=== PATIENT | female | born 1935 | race Hispanic/Latino ===

== ENCOUNTER 2018-09-05 00:08 | Emergency (ER) | payer OTHER ==
--- OUTSIDE RECORDS SUMMARY | 2018-09-05 00:11 | XMS REPORT ---
:1935 Author Organization eClinicalWorks Care Team Providers Name Role Phone Marco [facility] Provider Role Unavailable Allergies, Adverse Reactions, Alerts Substance Reaction Event Type N.K.D.A. Info Not Available Non Drug Allergy Problems Problem Type Condition Code Onset Dates Condition Status Problem Gout involving toe of right foot, M10.9 Active unspecified cause, unspecified chronicity Problem Peripheral polyneuropathy G62.9 Active Problem Uncontrolled type 2 diabetes E11.65 Active mellitus with hyperglycemia Problem HTN (hypertension), benign I10 Active Problem Anemia, iron deficiency, inadequate D50.8 Active dietary intake Problem History of colon cancer Z85.038 Active Problem Hypothyroidism, unspecified type E03.9 Active Problem Seasonal allergies J30.2 Active Problem Mixed hyperlipidemia E78.2 Active Assessment Gout involving toe of right foot, M10.9 Active unspecified cause, unspecified chronicity Assessment History of colon cancer Z85.038 Active Assessment Anemia, iron deficiency, inadequate D50.8 Active dietary intake Assessment Hypothyroidism, unspecified type E03.9 Active Assessment HTN (hypertension), benign I10 Active Assessment Seasonal allergies J30.2 Active Assessment Mixed hyperlipidemia E78.2 Active Assessment Peripheral polyneuropathy G62.9 Active Assessment Uncontrolled type 2 diabetes E11.65 Active mellitus with hyperglycemia Medications Medication Code Code Instructions Start End Status Dosage System Date Date Levothyroxine [facility] 57985260040 75 MCG Orally Jul 26, Active 1 tablet Sodium Once a day 2017 on an empty stomach in the morning Riya Aspirin EC ND 72942623252 81 MG Orally Active 1 tablet Low Dose Once a day Ferrous Sulfate ND 66244642810 325 (65 Fe) MG Aug 11, Active 1 tablet Orally Once a 2018 day Irbesartan-[place] ND 23988951587 300-12.5 MG Active 1 tablet chlorothiazide Orally Once a day Allopurinol ND 51309144131 100 MG Orally Active 1 tablet Once a day Tradjenta ND 67174022654 5 MG Orally Aug 11, Active 1 tablet Once a day 2018 Gabapentin ND 22371609458 300 MG Orally Inactive 1 capsule Twice a day Amlodipine [facility] 44575675738 2.5 MG Orally Aug 11, Active 1 tablet Besylate Once a day 2017 Lyrica [facility] 00074265737 100 MG Orally Active 1 capsule Twice a day Metformin HCl [facility] 97453813909 500 MG Orally Active 1 tablet TID with a meal Levothyroxine [facility] 41424175440 75 MCG Orally Active 1 tablet Sodium Once a day on an empty stomach in the morning Results No Known Results Summary Purpose eClinicalWorks Submission
[2018-09-05] MEDS ORDERED: DEXAMETHASONE 10 MG/ML VIAL ONE (00:53)
[2018-09-05] MEDS ORDERED: KETOROLAC 30 MG/ML INJ ONE (00:53)
--- NOTE | 2018-09-05 01:21 | ER ---
Nurse's Notes [facility] Name: Lara Vernon Age: 82 yrs Sex: Female : 1935 Arrival Date: 09/05/2018 Time: 00:11 Bed 8 Private MD: Nelson Lara Diagnosis: Otalgia, right ear;Acute pharyngitis Presentation: 09/05 00:39 Presenting complaint: Patient states: Right ear, right sided facial pain, pain to lp1 throat; States having some congestion prior to symptoms. Transition of care: patient was not received from another setting of care. Onset of symptoms was September 05, 2018. Risk Assessment: Do you want to hurt yourself or someone else? Patient reports no desire to harm self or others. Initial Sepsis Screen: Does the patient meet any 2 criteria? No. Patient's initial sepsis screen is negative. Does the patient have a suspected source of infection? No. Patient's initial sepsis screen is negative. Care prior to arrival: None. 00:39 Method Of Arrival: Wheelchair lp1 00:39 Acuity: BRIANDA 4 lp1 Historical: - Allergies: 00:42 No Known Allergies; lp1 - Home Meds: 00:42 allopurinol 100 mg Oral tab 1 tab once daily [Active]; aspirin 81 mg Oral chew 1 tab lp1 once daily [Active]; gabapentin 600 mg Oral tab 2 cap twice a day [Active]; irbesartan-hydrochlorothiazide 300-12.5 mg Oral tab 1 tab once daily [Active]; levothyroxine 75 mcg tab 1 tab once daily [Active]; metformin 500 mg Oral tab 1 tab three times a day [Active]; tramadol 50 mg Oral tab 1 tab twice a day [Active]; Vitamin D High Potency 35,000 IU daily [Active]; - PMHx: 00:42 COLON CA; Diabetes - NIDDM; Gout; Hypertension; Hypothyroidism; neuropathy; lp1 - PSHx: 00:42 None; lp1 - Immunization history:: Adult Immunizations up to date. - Social history:: Smoking status: Patient/guardian denies using tobacco. - Ebola Screening: : No symptoms or risks identified at this time. - Family history:: not pertinent. - Hospitalizations: : No recent hospitalization is reported. Screenin:43 Abuse screen: Denies threats or abuse. Denies injuries from another. Nutritional lp1 screening: No deficits noted. Tuberculosis screening: No symptoms or risk factors identified. Fall Risk None identified. Assessment: 00:40 General: Appears in no apparent distress. uncomfortable, Behavior is cooperative, aa1 appropriate for age, crying. Pain: Complains of pain in right zygomatic area, right cheek, right mandible and right ear Pain currently is 10 out of 10 on a pain scale. Is continuous. Neuro: Level of Consciousness is awake, alert, obeys commands, Oriented to person, place, time, situation, Moves all extremities. Speech is normal, Facial symmetry appears normal. Cardiovascular: Denies chest pain, palpitations. Respiratory: Airway is patent Respiratory effort is even, unlabored, Respiratory pattern is regular, symmetrical. GI: No signs and/or symptoms were reported involving the gastrointestinal system. : No signs and/or symptoms were reported regarding the genitourinary system. EENT: Ear canal clear on right ear Reports pain in right ear. Derm: Skin is intact, is healthy with good turgor, Skin is pink, warm \T\ dry. Musculoskeletal: Circulation, motion, and sensation intact. Capillary refill < 3 seconds. 01:32 Reassessment: Patient appears in no apparent distress at this time. Patient is alert, aa1 oriented x 3, equal unlabored respirations, skin warm/dry/pink. Discussed d/c \T\ f/u instructions with pt \T\ family; denies questions or concerns at this time Patient states feeling better. Patient states symptoms have improved. Vital Signs: 00:40 BP 200 / 78; Pulse 86; Resp 18; Temp 98.1(O); Pulse Ox 99% on R/A; Weight 69.85 kg; lp1 Height 5 ft. 4 in. (162.56 cm); Pain 10/10; 01:12 BP 165 / 68; Pulse 60; Resp 20; Pulse Ox 95% on R/A; aa1 00:40 Body Mass Index 26.43 (69.85 kg, 162.56 cm) lp1 ED Course: 00:11 Patient arrived in ED. es 00:12 Nelson Lara DO is Private Physician. es 00:31 Allen Juarez MD is Attending Physician. rn 00:34 Marilou Juarez RN is Primary Nurse. aa1 00:40 Triage completed. lp1 00:41 Arm band placed on left wrist. lp1 00:43 Patient has correct armband on for positive identification. Pulse ox on. NIBP on. lp1 01:32 No provider procedures requiring assistance completed. Patient did not have IV access aa1 during this emergency room visit. Administered Medications: 00:49 Drug: TORadol 30 mg Route: IM; Site: right deltoid; aa1 01:30 Follow up: Response: No adverse reaction; Pain is decreased aa1 00:50 Drug: Decadron 10 mg Route: IM; Site: right gluteus; aa1 01:30 Follow up: Response: No adverse reaction; Pain is decreased aa1 01:29 Drug: Augmentin 875 mg Route: PO; aa1 01:30 Follow up: Response: Medication administered at discharge. aa1 01:30 Drug: Bixby 5 mg-325 mg 1 tabs Route: PO; aa1 01:31 Follow up: Response: Medication administered at discharge. aa1 Outcome: 01:21 Discharge ordered by MD. rn 01:32 Discharged to home via wheelchair, with family. aa1 01:32 Condition: good 01:32 Discharge instructions given to patient, family, Instructed on discharge instructions, follow up and referral plans. medication usage, Demonstrated understanding of instructions, follow-up care, medications, Prescriptions given X 2. 01:34 Patient left the ED. aa1 Signatures: Marilou Juarez RN RN aa1 Aylin Gilbert Roman, MD MD rn Eryn Landeros RN RN lp1
--- NOTE | 2018-09-05 01:22 | EDPHYS ---
Physician Documentation [facility] Name: Lara Vernon Age: 82 yrs Sex: Female : 1935 Arrival Date: 09/05/2018 Time: 00:11 Bed 8 Private MD: Nelson Lara ED Physician Allen Juarez HPI: 09/05 01:01 This 82 yrs old Female presents to ER via Wheelchair with complaints of Ear rn Pain, RT FACIAL PAIN. 01:01 The patient presents with pain. The complaints affect the right cheek and right ear. rn Onset: The symptoms/episode began/occurred yesterday. Modifying factors: The symptoms are alleviated by nothing, the symptoms are aggravated by nothing. Severity of symptoms: At their worst the symptoms were moderate in the emergency department the symptoms are unchanged. The patient has not experienced similar symptoms in the past. The patient has not recently seen a physician. Reports began with right ear pain, radiates to right face and also reports sore throat, no fever, no rash, mildly improved with with ear drops from family member. . Historical: - Allergies: 00:42 No Known Allergies; lp1 - Home Meds: 00:42 allopurinol 100 mg Oral tab 1 tab once daily [Active]; aspirin 81 mg Oral chew 1 tab lp1 once daily [Active]; gabapentin 600 mg Oral tab 2 cap twice a day [Active]; irbesartan-hydrochlorothiazide 300-12.5 mg Oral tab 1 tab once daily [Active]; levothyroxine 75 mcg tab 1 tab once daily [Active]; metformin 500 mg Oral tab 1 tab three times a day [Active]; tramadol 50 mg Oral tab 1 tab twice a day [Active]; Vitamin D High Potency 35,000 IU daily [Active]; - PMHx: 00:42 COLON CA; Diabetes - NIDDM; Gout; Hypertension; Hypothyroidism; neuropathy; lp1 - PSHx: 00:42 None; lp1 - Immunization history:: Adult Immunizations up to date. - Social history:: Smoking status: Patient/guardian denies using tobacco. - Ebola Screening: : No symptoms or risks identified at this time. - Family history:: not pertinent. - Hospitalizations: : No recent hospitalization is reported. ROS: 01:01 Constitutional: Negative for fever, chills, and weight loss, Eyes: Negative for injury, rn pain, redness, and discharge, no vision changes ENT: + right ear pain and sore throat Neck: Negative for injury, pain, and swelling, Cardiovascular: Negative for chest pain, palpitations, and edema, Respiratory: Negative for shortness of breath, cough, wheezing, and pleuritic chest pain, Abdomen/GI: Negative for abdominal pain, nausea, vomiting, diarrhea, and constipation, MS/Extremity: Negative for injury and deformity, Skin: Negative for injury, rash, and discoloration, Neuro: + headache, no focal weakness/numbness Exam: 01:01 Constitutional: This is a well developed, well nourished patient who is awake, alert, rn holding towel to right face and cotton ball in right ear. Head/Face: Normocephalic, atraumatic, no rash, no tenderness over temporal artery Eyes: Pupils equal round and reactive to light, extra-ocular motions intact. Lids and lashes normal. Conjunctiva and sclera are non-icteric and not injected. Cornea within normal limits. Periorbital areas with no swelling, redness, or edema. ENT: mild pharyngeal erythema, no stridor, MMM Cardiovascular: Regular rate and rhythm with a normal S1 and S2. No gallops, murmurs, or rubs. No JVD. No pulse deficits. Respiratory: Lungs have equal breath sounds bilaterally, clear to auscultation. No increased work of breathing, no retractions or nasal flaring. Skin: Warm, dry with normal turgor. Normal color with no rashes, no lesions, and no evidence of cellulitis. MS/ Extremity: Pulses equal, no cyanosis. Neurovascular intact. Full, normal range of motion. Equal circumference. Neuro: Awake and alert, GCS 15, oriented to person, place, time, and situation. Cranial nerves II-XII grossly intact. Motor strength 5/5 in all extremities. Sensory grossly intact. Cerebellar exam normal. Vital Signs: 00:40 BP 200 / 78; Pulse 86; Resp 18; Temp 98.1(O); Pulse Ox 99% on R/A; Weight 69.85 kg; lp1 Height 5 ft. 4 in. (162.56 cm); Pain 10/10; 01:12 BP 165 / 68; Pulse 60; Resp 20; Pulse Ox 95% on R/A; aa1 00:40 Body Mass Index 26.43 (69.85 kg, 162.56 cm) lp1 MDM: 00:32 Patient medically screened. rn 01:18 Differential diagnosis: otitis media, otitis externa, foreign body, acute otalgia. Data rn reviewed: vital signs, nurses notes, lab test result(s), and as a result, I will discharge patient. Counseling: I had a detailed discussion with the patient and/or guardian regarding: the historical points, exam findings, and any diagnostic results supporting the discharge/admit diagnosis, lab results, the need for outpatient follow up, to return to the emergency department if symptoms worsen or persist or if there are any questions or concerns that arise at home. Response to treatment: the patient's symptoms have markedly improved after treatment, and as a result, I will discharge patient. Special discussion: I discussed with the patient/guardian in detail that at this point there is no indication for admission to the hospital. It is understood, however, that if the symptoms persist or worsen the patient needs to return immediately for re-evaluation. ED course: Pain down from 06/02 to 10/31. 09/05 00:38 Order name: Strep; Complete Time: 01:10 rn 09/05 00:38 Order name: Flu; Complete Time: 01:10 rn 09/05 01:10 Order name: Throat Culture EDMS Administered Medications: 00:49 Drug: TORadol 30 mg Route: IM; Site: right deltoid; aa1 01:30 Follow up: Response: No adverse reaction; Pain is decreased aa1 00:50 Drug: Decadron 10 mg Route: IM; Site: right gluteus; aa1 01:30 Follow up: Response: No adverse reaction; Pain is decreased aa1 01:29 Drug: Augmentin 875 mg Route: PO; aa1 01:30 Follow up: Response: Medication administered at discharge. aa1 01:30 Drug: Winder 5 mg-325 mg 1 tabs Route: PO; aa1 01:31 Follow up: Response: Medication administered at discharge. aa1 Disposition: 09/05/18 01:21 Discharged to Home. Impression: Otalgia, right ear, Acute pharyngitis. - Condition is Stable. - Discharge Instructions: Earache, Adult, Pharyngitis. - Prescriptions for Augmentin 875- 125 mg Oral Tablet - take 1 tablet by ORAL route every 12 hours for 10 days; 20 tablet. Medrol (Jeramy) 4 mg Oral Tablets, Dose Pack - take 1 tablet by ORAL route as directed - follow package instructions; 1 packet. - Medication Reconciliation Form, Thank You Letter, Antibiotic Education, Prescription Opioid Use form. - Follow up: Private Physician; When: As needed; Reason: Recheck today's complaints, Re-evaluation by your physician. - Problem is new. - Symptoms have improved. Signatures: Dispatcher [employer] EDMS Marilou Juarez RN RN aa1 Allen Juarez MD MD rn LanderosEryn RN RN lp1 Corrections: (The following items were deleted from the chart) 01:34 01:21 09/05/2018 01:21 Discharged to Home. Impression: Otalgia, right ear; Acute aa1 pharyngitis. Condition is Stable. Forms are Medication Reconciliation Form, Thank You Letter, Antibiotic Education, Prescription Opioid Use. Follow up: Private Physician; When: As needed; Reason: Recheck today's complaints, Re-evaluation by your physician. Problem is new. Symptoms have improved. rn
[2018-09-05] MEDS ORDERED: HYDROCODONE/APAP 5/325 MG TAB ONE (01:31)
[2018-09-05] MEDS ORDERED: AMOX/K CLAV 875 MG TAB ONE (01:31)
[2018-09-05 01:41] VITALS: TEMP 98.1
[2018-09-05 01:42] VITALS: BP 165/68; O2SAT 95
== END 2018-09-05 01:34 | disposition home or self-care (01) ==
LOC: ER 00:08
DX: J02.9 Acute pharyngitis, unspecified (principal); I10 Essential (primary) hypertension; E11.9 Type 2 diabetes mellitus without complications; E03.9 Hypothyroidism, unspecified; Z79.82 Long term (current) use of aspirin; Z85.038 Personal history of other malignant neoplasm of large intestine
CPT/HCPCS: 87070; 87081; 87804 ×2; 96372; 99283; J1100

== ENCOUNTER 2019-12-30 08:20 | Emergency (ER) | payer OTHER ==
--- OUTSIDE RECORDS SUMMARY | 2019-12-30 08:56 | XMS REPORT ---
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 Problem Pain in left ankle and joints of M25.572 Active left foot Problem Gout involving toe of right foot, M10.9 Active unspecified cause, unspecified chronicity Problem Peripheral polyneuropathy G62.9 Ac tive Problem Anemia, iron deficiency, inadequate D50.8 Active dietary intake Problem Uncontrolled type 2 diabetes E11.65 Active mellitus with hyperglycemia Medications Medication Code Code Instructions Start End Status Dosage System Date Date Levothyroxine [facility] 95488169470 75 MCG Orally Active 1 tablet Sodium Once a day in the morning on an empty stomach Results No Known Results Summary Purpose eClinicalWorks Submission
--- OUTSIDE RECORDS SUMMARY | 2019-12-30 08:56 | XMS REPORT ---
:1935 Author Organization eClinicalWorks Care Team Providers Name Role Phone LaraNelson Provider Role Unavailable Allergies, Adverse Reactions, Alerts Substance Reaction Event Type N.K.D.A. Info Not Available Non Drug Allergy Problems Problem Type Condition Code Onset Dates Condition Statu s Problem Hypothyroidism, unspecified type E03.9 Active Problem Gout involving toe of right foot, M10.9 Active unspecified cause, unspecified chronicity Problem Peripheral polyneuropathy G62.9 Ac tive Problem Pain in left ankle and joints of M25.572 Active left foot Problem Left sciatic nerve pain M54.32 Acti ve Problem CKD (chronic kidney disease) stage N18.3 Active 3, GFR 30-59 ml/min Problem Uncontrolled type 2 diabetes E11.65 Active mellitus with hyperglycemia Problem HTN (hypertension), benign I10 A ctive Problem 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 Problem Anemia, iron deficiency, inadequate D50.8 Active dietary intake Problem History of colon cancer Z85.038 Acti ve Assessment Acute cystitis without hematuria N30.00 Active Problem Mixed hyperlipidemia E78.2 Active Assessment Dysuria R30.0 Active Problem Seasonal allergies J30.2 Active Medications Medication Code Code Instructions Start End Status Dosage System Date Date Allopurinol [facility] 57545344284 100 MG Orally Active 1 tablet Once a day Metformin HCl [facility] 24147177230 500 MG Orally Active 1 tablet TID with a meal Amlodipine ND 98534684901 5 MG Orally Active 1 tab let Besylate Once a day Donezepil HCl-10 NDC 0 Active not mg defined Ferrous Sulfate [facility] 12159809691 325 (65 Fe) MG Activ e 1 tablet Orally BID Lyrica ND 70224803053 150 MG Orally Active 1 caps ule Twice a day Irbesartan-Hydroc [facility] 95575204454 300-12.5 MG Active 1 tablet hlorothiazide Orally Once a day Riya Aspirin EC [facility] 91123241912 81 MG Orally Active 1 tablet Low Dose Once a day Tradjenta [facility] 78013129193 5 MG Orally Active 1 tabl et Once a day Nitrofurantoin [facility] 28015676604 100 MG Orally Sep 19Sep 24, Active 1 capsule Macrocrystal BID 2019 2019 with food or milk Levothyroxine [facility] 26519901921 75 MCG Orally Active 1 tablet Sodium Once a day in the morning on an empty stomach Results No Known Results Summary Purpose eClinicalWorks Submission
--- OUTSIDE RECORDS SUMMARY | 2019-12-30 08:56 | XMS REPORT ---
:1935 Author Organization eClinicalWorks Care Team Providers Name Role Phone Nelson Lara Provider Role Unavailable Allergies, Adverse Reactions, Alerts Substance Reaction Event Type N.K.D.A. 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 Assessment History of colon cancer Z85.038 Acti ve Assessment Gout involving toe of right foot, M10.9 Active unspecified cause, unspecified chronicity Problem Pain in left ankle and joints of M25.572 Active left foot Problem Gout involving toe of right foot, M10.9 Active unspecified cause, unspecified chronicity Problem Peripheral polyneuropathy G62.9 Ac tive Problem Anemia, iron deficiency, inadequate D50.8 Active dietary intake Problem Uncontrolled type 2 diabetes E11.65 Active mellitus with hyperglycemia Assessment Proteinuria, unspecified type R80.9 Active Assessment Hypothyroidism, unspecified type E03.9 Active Assessment Peripheral polyneuropathy G62.9 Ac tive Assessment CKD (chronic kidney disease) stage N18.3 Active 3, GFR 30-59 ml/min Assessment Uncontrolled type 2 diabetes E11.65 Active mellitus with hyperglycemia Assessment History of fall within past 90 days Z91.81 Active Assessment 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 Assessment HTN (hypertension), benign I10 A ctive Problem History of colon cancer Z85.038 Acti ve Assessment Seasonal allergies J30.2 Active Assessment Mixed hyperlipidemia E78.2 Active Problem Mixed hyperlipidemia E78.2 Active Medications Medication Code Code Instructions Start End Status Dosage System Date Date Amlodipine ND 17387777269 5 MG Orally Active 1 tab let Besylate Once a day Ferrous Sulfate [facility] 28295456770 325 (65 Fe) MG Activ e 1 tablet Orally BID Tradjenta [facility] 31094888016 5 MG Orally Active 1 tabl et Once a day Allopurinol [facility] 38892006228 100 MG Orally Active 1 tablet Once a day Irbesartan-Hydroc [facility] 95679998125 300-12.5 MG Active 1 tablet hlorothiazide Orally Once a day Tradjenta [facility] 85162840260 5 MG Orally Active 1 tabl et Once a day Riya Aspirin EC [facility] 23620564040 81 MG Orally Active 1 tablet Low Dose Once a day Irbesartan-Hydroc [facility] 74212342631 300-12.5 MG Active TAKE 1 hlorothiazide TABLET BY MOUTH EVERY DAY Metformin HCl [facility] 73012239680 500 MG Orally Active 1 tablet TID with a meal Levothyroxine [facility] 00393431813 75 MCG Orally Active 1 tablet Sodium Once a day in the morning on an empty stomach Lyrica [facility] 61933935987 150 MG Orally Active 1 caps ule Twice a day Donezepil HCl-10 ND 0 Active not mg defined Results No Known Results Summary Purpose eClinicalWorks Submission
--- OUTSIDE RECORDS SUMMARY | 2019-12-30 08:56 | XMS REPORT ---
[...] of colon cancer Z85.038 Acti ve Assessment Dysuria R30.0 Active Problem Mixed hyperlipidemia E78.2 Active Assessment Acute cystitis without hematuria N30.00 Active Problem Seasonal allergies J30.2 Active Medications No Known Medications Results No Known Results Summary Purpose eClinicalWorks Submission
--- OUTSIDE RECORDS SUMMARY | 2019-12-30 08:56 | XMS REPORT ---
:1935 Author Organization [facility] t Address [address] 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 ia ia HTN HTN Problem Active (hypertensi (hypertensi on), benign on), benign Anemia, Anemia, Problem Active iron iron deficiency, deficiency, inadequate inadequate dietary dietary intake intake History of History of Problem Active colon colon cancer cancer Hypothyroid Hypothyroid Problem Active ism, ism, unspecified unspecified type type Seasonal Seasonal Problem Active allergies allergies Mixed Mixed Problem Active hyperlipide hyperlipide adán adán Current Current Problem Active 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 disorder without without prior prior episode episode Left Left Problem Active sciatic sciatic nerve pain nerve pain Pain in Pain in Problem Active left ankle left ankle and joints and joints of left of left foot foot CKD CKD Problem Active (chronic (chronic kidney kidney disease) disease) stage 3, stage 3, GFR 30-59 GFR 30-59 ml/min ml/min Chronic Chronic Problem Active gouty gouty arthritis arthritis Diabetes 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 Medications Ordered Filled Start Stop Current Ordering Indication Dosage Frequency Signature Comments Components Medication Medication Date Date Medication? Clinician (SIG) Name Name Amlodipine Amlodipine Yes Nelson 1 tablet Besylate Besylate Lara Ferrous Ferrous Yes Nelson 1 tablet Sulfate Sulfate Lara Tradjenta Tradjenta Yes Nelson 1 tablet Lara Donepezil Donepezil Yes Nelson 1 tablet HCl HCl Lara at bedtime Allopurinol Allopurinol Yes Nelson 1 table t Lara Riya Riya Yes Nelson 1 tablet Aspirin EC Aspirin EC Lara Low Dose Low Dose Lyrica Lyrica Yes Nelson 1 capsule Lara Irbesartan- Irbesartan- Yes Nelson 1 table t Hydrochloro Hydrochloro Lara thiazide thiazide Levothyroxi Levothyroxi Yes Nelson 1 table t ne Sodium ne Sodium Lara in the morning on an empty stomach Tylenol Tylenol Yes Nelson 1 tablet Lara as needed Encounters Start End Encounter Admission Attending Care Care Encounter Date/Time Date/Time Type Type Clinicians Facility Department ID 2019-12-29 2019-12-29 [id number] 11:00:00 11:00:00 [facility] 2019-12-29 2019-12-29 [id number] 10:51:00 10:51:00 [facility] 2019-12-29 2019-12-29 [id number] 10:45:00 10:45:00 [facility] 2019-12-26 2019-12-26 [id number] 08:10:00 08:10:00 [facility] 2019-12-20 2019-12-20 [id number] 14:15:00 14:15:00 [facility] 2019-12-08 2019-12-08 [id number] 13:32:00 13:32:00 [facility] 2019-11-23 2019-11-23 [id number] 08:41:00 08:41:00 [facility] 2019-10-05 2019-10-05 [id number] 11:15:00 11:15:00 [facility]U [facility] 2019-09-27 2019-09-27 [id number] 11:30:00 11:30:00 [facility] [facility] 2019-09-21 2019-09-21 [id number] 11:15:00 11:15:00 Specialty/U Special[facility] 2019-09-21 2019-09-21 [id number] 08:15:00 08:15:00 [employer] [facility] 2019-09-19 2019-09-19 [id number] 08:15:00 08:15:00 [employer] [facility] 2019-09-16 2019-09-16 [id number] 09:35:00 09:35:00 [facility] [facility] 2019-08-11 2019-08-11 [id number] 07:52:00 07:52:00 [facility] [facility] 2019-06-27 2019-06-27 [id number] 13:15:00 13:15:00 [facility] [facility] 2019-06-16 2019-06-16 [id number] 15:55:00 15:55:00 [employer] [facility] 2019-05-19 2019-05-19 [id number] 09:45:00 09:45:00 [facility] [facility] 2019-02-22 2019-02-22 [id number] 16:15:00 16:15:00 [facility] [facility] 2019-02-16 2019-02-16 [id number] 10:15:00 10:15:00 [facility] [facility] 2019-02-10 2019-02-10 [id number] 15:26:00 15:26:00 [facility] [facility] 2019-02-09 2019-02-09 [id number] 14:16:00 14:16:00 [facility] [facility] 2018-12-28 2018-12-28 [id number] 10:30:00 10:30:00 Specialty/U Specialty[facility] 2018-12-22 2018-12-22 [id number] 10:15:00 10:15:00 [employer] [facility] 2018-12-09 2018-12-09 [id number] 09:00:00 09:00:00 [facility] 2018-11-16 2018-11-16 [id number] 09:15:00 09:15:00 [employer] [facility] Medicine 2018-09-13 2018-09-13 [id number] 09:45:00 09:45:00 [facility] [facility] 2018-08-11 2018-08-11 [id number] 09:45:00 09:45:00 [employer] [facility]
--- OUTSIDE RECORDS SUMMARY | 2019-12-30 08:56 | XMS REPORT ---
:1935 Author Organization [employer] Care Team Providers Name Role Phone Nelson Lara Provider Role Unavailable Allergies No Known Allergies [...] of colon cancer Z85.038 Acti ve Assessment Proteinuria, unspecified type R80.9 Active Problem Mixed hyperlipidemia E78.2 Active Assessment CKD (chronic kidney disease) stage N18.3 Active 3, GFR 30-59 ml/min Problem Seasonal allergies J30.2 Active Medications No Known Medications Results No Known Results Summary Purpose [employer] Submission
--- OUTSIDE RECORDS SUMMARY | 2019-12-30 08:57 | XMS REPORT ---
:1935 Author Organization [employer] Care Team Providers Name Role Phone Marco Nelson Provider Role Unavailable Allergies, Adverse Reactions, Alerts Substance Reaction Event Type N.K.D.A. Info Not Available Non Drug Allergy Problems Problem Type Condition Code Onset Dates Condition Statu s Assessment Recurrent UTI N39.0 Active Assessment Gross hematuria R31.0 Active Assessment History of fall within past 90 days Z91.81 Active Assessment 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 Problem Mixed hyperlipidemia E78.2 Active Assessment Seasonal allergies J30.2 Active Problem Seasonal allergies J30.2 Active Assessment Gout involving toe of right foot, M10.9 Active unspecified cause, unspecified chronicity Problem Hypothyroidism, unspecified type E03.9 Active Problem Gout involving toe of right foot, M10.9 Active unspecified cause, unspecified chronicity Problem Peripheral polyneuropathy G62.9 Ac tive Problem Pain in left ankle and joints of M25.572 Active left foot Problem Left sciatic nerve pain M54.32 Acti ve Assessment Peripheral polyneuropathy G62.9 Ac tive Assessment Anemia, iron deficiency, inadequate D50.8 Active dietary intake Problem CKD (chronic kidney disease) stage N18.3 Active 3, GFR 30-59 ml/min Assessment History of colon cancer Z85.038 Acti ve Problem Uncontrolled type 2 diabetes E11.65 Active mellitus with hyperglycemia Problem HTN (hypertension), benign I10 A ctive Problem 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 Problem Anemia, iron deficiency, inadequate D50.8 Active dietary intake Assessment Hypothyroidism, unspecified type E03.9 Active Assessment HTN (hypertension), benign I10 A ctive Assessment CKD (chronic kidney disease) stage N18.3 Active 3, GFR 30-59 ml/min Assessment Proteinuria, unspecified type R80.9 Active Problem History of colon cancer Z85.038 Acti ve Assessment Mixed hyperlipidemia E78.2 Active Assessment Uncontrolled type 2 diabetes E11.65 Active mellitus with hyperglycemia Medications Medication Code Code Instructions Start End Status Dosage System Date Date Metformin HCl [facility] 86142446024 500 MG Orally Inactive 1 tablet TID with a meal Donezepil HCl-10 [facility] 0 Active not mg defined Tradjenta [facility] 73880350238 5 MG Orally Active 1 tabl et Once a day Levothyroxine [facility] 03909780996 75 MCG Orally Active 1 tablet Sodium Once a day in the morning on an empty stomach Riya Aspirin EC [facility] 35939669892 81 MG Orally Active 1 tablet Low Dose Once a day Lyrica [facility] 77069639590 150 MG Orally Active 1 caps ule Twice a day Levothyroxine [facility] 29408146653 75 MCG Orally Active 1 tablet Sodium Once a day in the morning on an empty stomach Allopurinol [facility] 19930779560 100 MG Orally Active 1 tablet Once a day Lyrica [facility] 36200987642 150 MG Orally Active 1 caps ule Twice a day Ferrous Sulfate [facility] 85841983130 325 (65 Fe) MG Activ e 1 tablet Orally BID Amlodipine [facility] 23848383898 5 MG Orally Active 1 tab let Besylate Once a day Irbesartan-[place] [facility] 50642527345 300-12.5 MG Active 1 tablet chlorothiazide Orally Once a day Tradjenta [facility] 78583728119 5 MG Orally Active 1 tabl et Once a day Donepezil HCl [facility] 10941660716 10 MG Orally Active 1 tablet Once a day at bedtime Results No Known Results Summary Purpose [employer]ClinicalWorks Submission
--- OUTSIDE RECORDS SUMMARY | 2019-12-30 08:57 | XMS REPORT ---
:1935 Author Organization [employer]Works Care Team Providers Name Role Phone Vesna Toro Provider Role Unavailable Allergies, Adverse Reactions, Alerts [...] of colon cancer Z85.038 Acti ve Assessment Gross hematuria R31.0 Active Problem Mixed hyperlipidemia E78.2 Active Assessment UTI (lower urinary tract infection) N39.0 Active Problem Seasonal allergies J30.2 Active Medications Medication Code Code Instructions Start End Status Dosage System Date Date Cefdinir ND 26582921051 300 MG Orally Sep 21Sep 26, Active as BID 2019 2019 directed Metformin HCl ND 31189377142 500 MG Orally Active 1 tablet TID with a meal Tradjenta ND 34207020362 5 MG Orally Active 1 tabl et Once a day Ferrous Sulfate ND 13693680555 325 (65 Fe) MG Activ e 1 tablet Orally BID Irbesartan-Hydroc ND 03999034144 300-12.5 MG Active 1 tablet hlorothiazide Orally Once a day Levothyroxine ND 90513899970 75 MCG Orally Active 1 tablet Sodium Once a day in the morning on an empty stomach Nitrofurantoin ND 64612826223 100 MG Orally Sep 19Sep 24, Active 1 capsule Macrocrystal BID 2019 2019 with food or milk Donezepil HCl-10 ND 0 Active not mg defined Allopurinol [facility] 16010804448 100 MG Orally Active 1 tablet Once a day Riya Aspirin EC [facility] 68299198533 81 MG Orally Active 1 tablet Low Dose Once a day Amlodipine [facility] 11516215750 5 MG Orally Active 1 tab let Besylate Once a day Lyrica [facility] 04640190120 150 MG Orally Active 1 caps ule Twice a day Results No Known Results Summary Purpose [employer]ClinicalWorks Submission
--- OUTSIDE RECORDS SUMMARY | 2019-12-30 08:57 | XMS REPORT ---
:1935 Author Organization [employer]Works Care Team Providers Name Role Phone LaraNelson Provider Role Unavailable Allergies No Known Allergies Problems Problem Type Condition Code Onset Dates Condition Statu s Problem Hypothyroidism, unspecified type E03.9 Active Problem Gout involving toe of right foot, M10.9 Active unspecified cause, unspecified chronicity Problem Peripheral polyneuropathy G62.9 Ac tive Problem History of colon cancer Z85.038 Acti ve Problem Mixed hyperlipidemia E78.2 Active Problem Seasonal allergies J30.2 Active Problem Pain in left ankle and joints [...] iron deficiency, inadequate D50.8 Active dietary intake Medications No Known Medications Results No Known Results Summary Purpose [employer]ClinicalWorks Submission
--- OUTSIDE RECORDS SUMMARY | 2019-12-30 08:57 | XMS REPORT ---
:1935 Author Organization [employer]Works Care Team Providers Name Role Phone Muna Vesna Provider Role Unavailable Allergies, Adverse Reactions, Alerts [...] Start End Status Dosage System Date Date Lyrica [facility] 70614754097 150 MG Orally Active 1 caps ule Twice a day Lyrica [facility] 64681764308 150 MG Orally Active 1 caps ule Twice a day Levothyroxine [facility] 98870024576 75 MCG Orally Active 1 tablet Sodium Once a day in the morning on an empty stomach Riya Aspirin EC ND 38915020850 81 MG Orally Active 1 tablet Low Dose Once a day Levothyroxine ND 35517392116 75 MCG Orally Active 1 tablet Sodium Once a day in the morning on an empty stomach Ferrous Sulfate [facility] 61583594034 325 (65 Fe) MG Activ e 1 tablet Orally BID Tradjenta [facility] 12861456332 5 MG Orally Active 1 tabl et Once a day Irbesartan-Hydroc [facility] 58443316745 300-12.5 MG Active 1 tablet hlorothiazide Orally Once a day Amlodipine [facility] 37855142592 5 MG Orally Active 1 tab let Besylate Once a day Tradjenta [facility] 03963846212 5 MG Orally Active 1 tabl et Once a day Donepezil HCl [facility] 34934794588 10 MG Orally Active 1 tablet Once a day at bedtime Allopurinol [facility] 53569895105 100 MG Orally Active 1 tablet Once a day Results No Known Results Summary Purpose [employer]ClinicalWorks Submission
--- OUTSIDE RECORDS SUMMARY | 2019-12-30 08:57 | XMS REPORT ---
[...] deficiency, inadequate D50.8 Active dietary intake Medications Medication Code System Code Instructions Start End Date Status Dos age Date Bactrim [facility] 60322773852 400-80 MG Orally December 12, December 13, Active 1 tablet Once a day 2019 2019 Results No Known Results Summary Purpose [employer]ClinicalWorks Submission
--- OUTSIDE RECORDS SUMMARY | 2019-12-30 08:58 | XMS REPORT ---
:1935 Author Organization [employer]ClinicalWorks Care Team Providers Name Role Phone Marco Nelson Provider Role Unavailable Allergies, Adverse Reactions, Alerts Substance Reaction Event Type N.K.D.A. Info Not Available Non Drug Allergy Problems Problem Type Condition Code Onset Dates Condition Statu s Assessment 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 Assessment History of fall within past 90 Z91.81 Active days Assessment Gout involving toe of right foot, M10.9 Active unspecified cause, unspecified chronicity Assessment Seasonal allergies J30.2 Active Assessment History of colon cancer Z85.038 Acti ve Assessment Anemia, iron deficiency, D50.8 Act ana inadequate dietary intake Assessment Mixed hyperlipidemia E78.2 Active Assessment Peripheral polyneuropathy G62.9 Ac tive Assessment Proteinuria, unspecified type R80.9 Active Problem Anemia, iron deficiency, D50.8 Act ana inadequate dietary intake Assessment CKD (chronic kidney disease) stage N18.3 Active 3, GFR 30-59 ml/min Problem 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 Assessment Hypothyroidism, unspecified type E03.9 Active Problem Left sciatic nerve pain M54.32 Acti ve Problem CKD (chronic kidney disease) stage N18.3 Active 3, GFR 30-59 ml/min Problem Pain in left ankle and joints of M25.572 Active left foot Problem Chronic gouty arthritis [id number] Acti ve Problem 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 Assessment Uncontrolled type 2 diabetes E11.65 Active mellitus with hyperglycemia Problem 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 Assessment HTN (hypertension), benign I10 A ctive Problem Anemia due to chronic illness D63.8 Active Problem Abdominal aortic atherosclerosis I70.0 Active Problem Aortic disease I77.9 Active Problem 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 Assessment Recurrent UTI N39.0 Active Problem Seasonal allergies J30.2 Active Assessment Gross hematuria R31.0 Active Problem Hypothyroidism, unspecified type E03.9 Active Problem History of colon cancer Z85.038 Acti ve Problem Mixed hyperlipidemia E78.2 Active Problem Peripheral polyneuropathy G62.9 Ac tive Problem Uncontrolled type 2 diabetes E11.65 Active mellitus with hyperglycemia Problem HTN (hypertension), benign I10 A ctive Problem Gout involving toe of right foot, M10.9 Active unspecified cause, unspecified chronicity Medications Medication Code Code Instructions Start End Status Dosage System Date Date Donepezil HCl [facility] 46577774078 10 MG Orally Active 1 tablet Once a day at bedtime Riya Aspirin EC [facility] 23748785033 81 MG Orally Active 1 tablet Low Dose Once a day Lyrica [facility] 78528704449 150 MG Orally Active 1 caps ule Twice a day Ferrous Sulfate [facility] 54810634080 325 (65 Fe) MG Activ e 1 tablet Orally BID Allopurinol [facility] 46569533303 100 MG Orally Active 1 tablet Once a day Tradjenta [facility] 34991485134 5 MG Orally Active 1 tabl et Once a day Amlodipine [facility] 30913466792 5 MG Orally Active 1 tab let Besylate Once a day Irbesartan-Hydroc [facility] 54636772774 300-12.5 MG Active 1 tablet hlorothiazide Orally Once a day Levothyroxine ND 72105323049 75 MCG Orally Active 1 tablet Sodium Once a day in the morning on an empty stomach Tylenol [facility] 68154873588 325 MG Orally Active 1 tabl et every 4 hrs as needed Results No Known Results Summary Purpose eClinicalWorks Submission
--- OUTSIDE RECORDS SUMMARY | 2019-12-30 08:58 | XMS REPORT ---
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 Problem Anemia due to chronic illness D63.8 Active Problem Abdominal aortic atherosclerosis I70.0 Active Problem Aortic disease I77.9 Active Problem 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 Problem Seasonal allergies J30.2 Active Problem Hypothyroidism, unspecified type E03.9 Active Problem History of colon cancer Z85.038 Acti ve Problem Mixed hyperlipidemia E78.2 Active Problem Peripheral polyneuropathy G62.9 Ac tive Problem Uncontrolled type 2 diabetes E11.65 Active mellitus with hyperglycemia Problem HTN (hypertension), benign I10 A ctive Problem Anemia, iron deficiency, D50.8 Act ana inadequate dietary intake Problem Gout involving toe of right foot, M10.9 Active unspecified cause, unspecified chronicity Problem 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 Medications No Known Medications Results No Known Results Summary Purpose [employer] Submission
--- OUTSIDE RECORDS SUMMARY | 2019-12-30 08:58 | XMS REPORT ---
:1935 Author [facility] Care Team Providers Name Role Phone John Wilkins Provider Role Unavailable Allergies, Adverse Reactions, Alerts [...] of colon cancer Z85.038 Acti ve Assessment UTI (lower urinary tract infection) N39.0 Active Problem Mixed hyperlipidemia E78.2 Active Assessment Gross hematuria R31.0 Active Problem Seasonal allergies J30.2 Active Medications Medication Code Code Instructions Start End Status Dosage System Date Date Amlodipine ND 10606754931 5 MG Orally Active 1 tab let Besylate Once a day Ferrous Sulfate [facility] 38065359236 325 (65 Fe) MG Activ e 1 tablet Orally BID Tradjenta ND 22612923929 5 MG Orally Active 1 tabl et Once a day Donepezil HCl ND 72709091028 10 MG Orally Active 1 tablet at Once a day bedtime Allopurinol ND 15680408327 100 MG Orally Active 1 tablet Once a day Riya Aspirin EC ND 93144213566 81 MG Orally Active 1 tablet Low Dose Once a day Lyrica ND 22244270859 150 MG Orally Active 1 caps ule Twice a day Irbesartan-[place] [facility] 54472253937 300-12.5 MG Active 1 tablet chlorothiazide Orally Once a day Lyrica [facility] 30619351261 150 MG Orally Active 1 caps ule Twice a day Levothyroxine [facility] 17242801066 75 MCG Active TAKE 1 Sodium TABLET BY MOUTH IN MORNING ON AN EMPTY STOMACH Tradjenta [facility] 26649763510 5 MG Orally Active 1 tabl et Once a day Cefdinir [facility] 26158385171 300 MG Orally NovemberDecember 24, Active as di rected BID 2019 Results No Known Results Summary Purpose [employer]ClinicalWorks Submission
--- OUTSIDE RECORDS SUMMARY | 2019-12-30 08:59 | XMS REPORT ---
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 81522333855 5 MG Orally Active 1 tab let Besylate Once a day Ferrous Sulfate [facility] 27449996669 325 (65 Fe) MG Activ e 1 tablet Orally BID Tylenol [facility] 59056800187 325 MG Orally Active 1 tabl et every 4 hrs as needed Donepezil HCl [facility] 00365824280 10 MG Orally Active 1 tablet Once a day at bedtime Tradjenta [facility] 54191664721 5 MG Orally Active 1 tabl et Once a day Lyrica [facility] 89174932060 150 MG Orally Active 1 caps ule Twice a day Results No Known Results Summary Purpose eClinicalWorks Submission
--- OUTSIDE RECORDS SUMMARY | 2019-12-30 08:59 | XMS REPORT ---
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 Problem Anemia, iron deficiency, D50.8 Act ana inadequate dietary intake Assessment Chronic gouty arthritis M1A.00X0 Acti ve Problem 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 Assessment 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 Problem Left sciatic nerve pain M54.32 Acti ve Problem CKD (chronic kidney disease) stage N18.3 Active 3, GFR 30-59 ml/min Problem Pain in left ankle and joints of M25.572 Active left foot Problem Chronic gouty arthritis M1A.00X0 Acti ve Problem 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
[2019-12-30 09:55] LABS: Absolute Lymphocytes (CBC) 0.9 K/uL (0.7-4.9); Basophils % 2.2 % (0-1.3); Hematocrit 30.6 % (36.0-45.0); Lymphocytes % 18.9 % (15.3-44.8); MPV 10.7 fL (7.6-11.3); RBC Red Blood Cell Count 3.46 M/uL (3.86-4.86)
[2019-12-30 10:11] LABS: Urine Bilirubin NEGATIVE (NEG); Urine Blood 3+ (NEG); Urine Glucose NEGATIVE (NEG); Urine Protein 3+ (NEG); Urine Urobilinogen 0.2 mg/dL (0.2-1.0)
[2019-12-30 10:15] LABS: Albumin 3.5 g/dL (3.4-5.0); Bilirubin Direct 0.1 mg/dL (0-0.2); Bilirubin Total 0.3 mg/dL (0.2-1.0); Potassium 4.6 mmol/L (3.5-5.1)
[2019-12-30 10:20] LABS: Urine RBC LOADED /HPF (NONE SEEN)
[2019-12-30 10:22] LABS: Urine Appearance TURBID; Urine Color RED
[2019-12-30 10:23] LABS: Urine Bacteria 20-50 /HPF (<20); Urine Culture Reflex Order NOT NEEDED
--- NOTE | 2019-12-30 11:04 | RAD REPORT ---
EXAM DESCRIPTION: CT - Abdomen Pelvis Wo Contrast - 12/30/2019 10:40 am CLINICAL HISTORY: Abdominal pain. lower abdominal pain, vaginal bleeding COMPARISON: No comparisons TECHNIQUE: CT imaging of the abdomen and pelvis was performed without contrast. Solid organ, bowel a nd vascular assessment is limited due to lack of IV and oral contrast. All CT scans are performed using dose optimization technique as appropriate and may include automated exposure control or mA/KV adjustment according to patient size. FINDINGS: The lower lung becerra are clear. Noncontrast assessment of the liver demonstrates no evidence of focal mass or biliary dilatation.The spleen, adrenal glands and pancreas are within normal limits. Left kidney appears atrophic. Moderate right hydronephrosis and hydroureter is present. Several small calcifications in the calices of the right kidney probably right renal calculi. No obstructing stone is seen in the right ureter. There is a small nonspecific polypoid lesion along the posterior left aspect of the urinary bladder m easuring 12 x 10 mm. No bowel obstruction, free air, free fluid or abscess. Heavy vascular calcifications are noted. The a ppendix is normal. Mild anterolisthesis L4 on 5 is seen. IMPRESSION: Moderate right hydronephrosis and hydroureter is present without obstructing calculus se en. Small polypoid lesion along the posterior left aspect of the urinary bladder measuring 12 x 10 mm cou ld represent a small mass. Followup cystoscopy would be suggested direct visualization. A limited non-contrast examination was performed as detailed.
[2019-12-30 13:14] LABS: Blood Morphology Comment NOT SEEN (NOT SEEN); Platelet Estimate ADEQ; Urine White Blood Cell Casts OK
[2019-12-30] MEDS ORDERED: NACL 0.9% IRR SOLN 2,000 ML IRR ONE (13:48)
[2019-12-30] MEDS ORDERED: MORPHINE 4 MG/ML SYR ONE (14:21)
[2019-12-30] MEDS ORDERED: ONDANSETRON 4 MG/2 ML VIAL ONE (14:21)
--- NOTE | 2019-12-30 16:38 | ER ---
Nurse's Notes [facility] Name: Lara Vernon Age: 84 yrs Sex: Female : 1935 Arrival Date: 12/30/2019 Time: 08:23 Bed 16 Private MD: Nelson Lara Diagnosis: Hematuria;Urinary tract infection, site not specified Presentation: 12/29 08:36 Chief complaint: Patient states: "I went to go see a doctor about 2 weeks ago for aa5 burning with urination and he examined my genital area but it was hurting too bad and he had to stop and the next day I started bleeding". pt states "I am not sure if it's coming from my vagina or my bladder". Pt reports she finished antibiotic treatment prescribed 2 weeks ago and reports she received "an antibiotic shot at the office" 2 weeks ago. Pt c/o pain to pubic area/genital area. 08:36 Acuity: BRIANDA 3 aa5 08:36 Method Of Arrival: Ambulatory aa5 08:36 Coronavirus screen: Proceed with normal triage. Patient denies a cough. Patient denies aa5 shortness of breath or difficulty breathing. Patient denies measured and/or subjective temperature greater than 100.4F prior to today's visit. Patient denies travel on a cruise ship or to a country the [facility] currently lists as an affected area. Patient denies contact with known and/or suspected case of COVID-19. Ebola Screen: Patient negative for fever greater than or equal to 101.5 degrees Fahrenheit, and additional compatible Ebola Virus Disease symptoms. Initial Sepsis Screen: Does the patient meet any 2 criteria? No. Patient's initial sepsis screen is negative. Does the patient have a suspected source of infection? No. Patient's initial sepsis screen is negative. Risk Assessment: Do you want to hurt yourself or someone else? Patient reports no desire to harm self or others. Onset of symptoms was December 2019. Historical: - Allergies: 08:36 No Known Allergies; aa5 - PMHx: 08:36 COLON CA; Diabetes - NIDDM; Gout; Hypertension; Hypothyroidism; neuropathy; aa5 - PSHx: 08:36 Partial removal of colon; foot; aa5 - Immunization history:: Adult Immunizations unknown. - Social history:: Smoking status: Patient denies any tobacco usage or history of. Screenin:30 Abuse screen: Denies threats or abuse. Nutritional screening: No deficits noted. em Tuberculosis screening: No symptoms or risk factors identified. Fall Risk None identified. Assessment: 09:30 General: Appears in no apparent distress. comfortable, Behavior is calm, cooperative, em appropriate for age, Denies fever. Pain: Complains of pain in suprapubic area Pain currently is 8 out of 10 on a pain scale. Neuro: Level of Consciousness is awake, alert, obeys commands, Oriented to person, place, time, situation, Appropriate for age. Cardiovascular: Capillary refill < 3 seconds Patient's skin is warm and dry. Respiratory: Airway is patent Respiratory effort is even, unlabored, Respiratory pattern is regular, symmetrical. GI: Abdomen is round non-distended, Bowel sounds present X 4 quads. Patient currently denies nausea, vomiting. : Urine is miguel blood, Reports burning with urination, pain with urination, vaginal bleeding that is. Derm: Skin is intact, is thin, Skin is pink, warm \\T\\ dry. Musculoskeletal: Capillary refill < 3 seconds, Range of motion: intact in all extremities. 13:09 Reassessment: Patient appears in no apparent distress at this time. Patient and/or em family updated on plan of care and expected duration. Pain level reassessed. Patient is alert, oriented x 3, equal unlabored respirations, skin warm/dry/pink. 14:52 Reassessment: Patient appears in no apparent distress at this time. Patient and/or em family updated on plan of care and expected duration. Pain level reassessed. Patient is alert, oriented x 3, equal unlabored respirations, skin warm/dry/pink. Patient states feeling better. Patient states symptoms have improved. 15:40 Reassessment: Patient appears in no apparent distress at this time. Patient and/or em family updated on plan of care and expected duration. Pain level reassessed. Patient is alert, oriented x 3, equal unlabored respirations, skin warm/dry/pink. bladder irrigation to clear, provider notified, pt denies pain Patient denies pain at this time. Patient states feeling better. 15:50 Reassessment: Patient appears in no apparent distress at this time. Patient and/or tw2 family updated on plan of care and expected duration. Pain level reassessed. Patient is alert, oriented x 3, equal unlabored respirations, skin warm/dry/pink. 16:41 Reassessment: Patient appears in no apparent distress at this time. Patient and/or tw2 family updated on plan of care and expected duration. Pain level reassessed. Patient is alert, oriented x 3, equal unlabored respirations, skin warm/dry/pink. 17:43 Reassessment: Patient appears in no apparent distress at this time. replaced Chavez with em leg bag, wheeled out to vehicle and explained discharge instructions to family. Vital Signs: 08:36 BP 174 / 60; Pulse 64; Resp 16 S; Temp 98.3; Pulse Ox 100% on R/A; Weight 72.12 kg (R); aa5 Pain 9/10; 13:02 BP 175 / 59; Pulse 59; Resp 18; Pulse Ox 99% on R/A; em 14:52 BP 185 / 56; Pulse 52; Resp 16; Pulse Ox 95% on R/A; Pain 0/10; em 15:50 BP 160 / 51; Pulse 57; Resp 17; Pulse Ox 99% on R/A; tw2 16:40 BP 172 / 71; Pulse 56; Resp 17; Pulse Ox 97% on R/A; tw2 ED Course: 08:23 Patient arrived in ED. mr 08:23 Nelson Lara DO is Private Physician. mr 08:36 [facility] Sims [facility] 08:36 Theo Shay MD is Attending Physician. jmm 08:36 Arm band placed on Patient placed in an exam room, on a stretcher. aa5 08:44 Brayden Connor, RN is Primary Nurse. em 08:56 Triage completed. aa5 09:15 Urine collected: clean catch specimen, miguel blood. dh3 09:30 Patient has correct armband on for positive identification. Placed in gown. Bed in low em position. Call light in reach. 09:45 Initial lab(s) drawn, by me, sent to lab. Inserted saline lock: 22 gauge in left em forearm, using aseptic technique. Blood collected. 10:38 CT Abd/Pelvis - Without Contrast In Process Unspecified. EDMS 12:50 Bladder scan completed. 386 ml post void residual, provider notified. em 13:55 3-way catheter inserted, using sterile technique, 20 Fr. Bladder irrigated via Chavez em with 2 L NS normal saline returned miguel blood Patient tolerated well. 17:51 No provider procedures requiring assistance completed. IV discontinued, intact, em bleeding controlled, No redness/swelling at site. Pressure dressing applied. Administered Medications: 14:13 Drug: Zofran (Ondansetron) 4 mg Route: IVP; Site: left forearm; em 15:00 Follow up: Response: No adverse reaction em 14:15 Drug: morphine 4 mg Route: IVP; Site: left forearm; em 15:00 Follow up: Response: No adverse reaction; Marked relief of symptoms; Pain is decreased; em RASS: Alert and Calm (0) 17:26 Drug: Rocephin - (cefTRIAXone) 1 grams Route: IVPB; Infused Over: 30 mins; Site: left em forearm; 17:52 Follow up: Response: No adverse reaction; IV Status: Completed infusion; IV Intake: 10mlem Intake: 17:52 IV: 10ml; Total: 10ml. em Outcome: 16:[address] . [facility] 17:51 Discharged to home via wheelchair, with family. em 17:51 Condition: good 17:51 Discharge instructions given to patient, family, Instructed on discharge instructions, follow up and referral plans. medication usage, Demonstrated understanding of instructions, follow-up care, medications, Prescriptions given X 3. 17:52 Patient left the ED. em Signatures: Dispatcher [employer] EDJarad Jarvis PA PA jmm Wong Jennifer ConnorBrayden RN RN Alexandra Cortés RN RN aa5 Aislinn Hunt RN RN 2 [facility]
--- NOTE | 2019-12-30 16:39 | EDPHYS ---
Physician Documentation [facility] Name: Lara Vernon Age: 84 yrs Sex: Female : 1935 Arrival Date: 12/30/2019 Time: 08:23 Bed 16 Private MD: Marco [facility] ED Physician Theo Shay HPI: 12/29 09:32 This 84 yrs old Female presents to ER via Ambulatory with complaints of jmm Vaginal Bleeding, Vaginal Pain. 09:32 The patient presents with vaginal bleeding that is moderate, with no clots. Onset: The jmm symptoms/episode began/occurred gradually, 2 week(s) ago. Modifying factors: The symptoms are alleviated by nothing, the symptoms are aggravated by nothing. Associated signs and symptoms: Pertinent positives: dysuria, Pertinent negatives: fever. This is an 84 year old female with a history of dm, htn, that presents to the ED with complaints of vaginal bleeding, dysuria beginning 2 weeks ago and worsening yesterday with increased bleeding. Patient currently complains of suprapubic abdominal pain, denies vomiting or diarrhea. . Historical: - Allergies: 08:36 No Known Allergies; aa5 - PMHx: 08:36 COLON CA; Diabetes - NIDDM; Gout; Hypertension; Hypothyroidism; neuropathy; aa5 - PSHx: 08:36 Partial removal of colon; foot; aa5 - Immunization history:: Adult Immunizations unknown. - Social history:: Smoking status: Patient denies any tobacco usage or history of. ROS: 09:32 Constitutional: Negative for fever, chills, and weight loss, Cardiovascular: Negative jmm for chest pain, palpitations, and edema, Respiratory: Negative for shortness of breath, cough, wheezing, and pleuritic chest pain. 09:32 Abdomen/GI: Positive for abdominal pain. 09:32 : Positive for urinary symptoms, vaginal bleeding. 09:32 All other systems are negative. Exam: 09:32 Constitutional: This is a well developed, well nourished patient who is awake, alert, jmm and in no acute distress. Head/Face: atraumatic. Eyes: EOMI, no conjunctival erythema appreciated ENT: Moist Mucus Membranes Neck: Trachea midline, Supple Chest/axilla: Normal chest wall appearance and motion. Cardiovascular: Regular rate and rhythm. No edema appreciated Respiratory: Normal respirations, no respiratory distress appreciated 09:32 Abdomen/GI: Inspection: abdomen appears normal, Bowel sounds: normal, Palpation: soft, mild abdominal tenderness, in the suprapubic area. 09:32 Back: CVA tenderness, is absent. 09:32 Musculoskeletal/extremity: ROM: intact in all extremities. 09:32 Skin: Appearance: Color: normal in color. 09:32 Neuro: Orientation: is normal, Mentation: is normal, Memory: is normal. 09:32 Psych: Behavior/mood is pleasant, cooperative. Vital Signs: 08:36 BP 174 / 60; Pulse 64; Resp 16 S; Temp 98.3; Pulse Ox 100% on R/A; Weight 72.12 kg (R); aa5 Pain 9/10; 13:02 BP 175 / 59; Pulse 59; Resp 18; Pulse Ox 99% on R/A; em 14:52 BP 185 / 56; Pulse 52; Resp 16; Pulse Ox 95% on R/A; Pain 0/10; em 15:50 BP 160 / 51; Pulse 57; Resp 17; Pulse Ox 99% on R/A; tw2 16:40 BP 172 / 71; Pulse 56; Resp 17; Pulse Ox 97% on R/A; tw2 MDM: 08:39 Patient medically screened. [place] 16:35 Data reviewed: vital signs, nurses notes. Counseling: I had a detailed discussion with yadiel the patient and/or guardian regarding: the historical points, exam findings, and any diagnostic results supporting the discharge/admit diagnosis, lab results, radiology results, the need for outpatient follow up, to return to the emergency department if symptoms worsen or persist or if there are any questions or concerns that arise at home. ED course: Patient irrigated until bleeding resolved. Patient states feeling much better. Chavez placed with leg bag. I discussed the patient with Dr. Wilkins's CALL OR CONTACT CENTRE OPERATOR whom stated patient has chronic renal insufficiency and chronic anemia. Patient will be prescribed oral abx and will follow up with urology on Thursday. Patient is otherwise given strict return precautions. I discussed this with the patient whom agrees with the plan of care. . 12/29 08:57 Order name: Basic Metabolic Panel; Complete Time: 10:17 [facility] 12/29 08:57 Order name: CBC with Diff; Complete Time: 13:28 [facility] 12/29 08:57 Order name: Creatinine for Radiology; Complete Time: 10:13 [facility] 12/29 08:57 Order name: Hepatic Function; Complete Time: 10:17 [facility] 12/29 08:57 Order name: Lipase; Complete Time: 10:17 [facility] 12/29 08:57 Order name: Urine Culture [facility] 12/29 09:29 Order name: Urinalysis W/Microscopic; Complete Time: 10:25 [facility] 12/29 10:14 Order name: CT Abd/Pelvis - Without Contrast; Complete Time: 11:18 [facility] 12/29 13:14 Order name: CBC Smear Scan; Complete Time: 13:28 [facility] 12/29 08:57 Order name: IV Saline Lock; Complete Time: 09:52 [facility] 12/29 08:57 Order name: Labs collected and sent; Complete Time: 09:52 [facility] 12/29 11:49 Order name: Misc. Order; Complete Time: 12:54 [facility] 12/29 12:45 Order name: Misc. Order: post void residual; Complete Time: 12:54 [facility] 12/29 12:52 Order name: Bladder Irrigation; Complete Time: 14:02 [facility] Administered Medications: 14:13 Drug: Zofran (Ondansetron) 4 mg Route: IVP; Site: left forearm; em 15:00 Follow up: Response: No adverse reaction em 14:15 Drug: morphine 4 mg Route: IVP; Site: left forearm; em 15:00 Follow up: Response: No adverse reaction; Marked relief of symptoms; Pain is decreased; em RASS: Alert and Calm (0) 17:26 Drug: Rocephin - (cefTRIAXone) 1 grams Route: IVPB; Infused Over: 30 mins; Site: left em forearm; 17:52 Follow up: Response: No adverse reaction; IV Status: Completed infusion; IV Intake: 10mlem Disposition: 12/30/19 16:38 Discharged to Home. Impression: Hematuria, Urinary tract infection, site not specified. - Condition is Stable. - Discharge Instructions: Chavez Catheter Care, Adult, Hematuria, Adult, Urinary Tract Infection, Adult. - Prescriptions for Ultracet 37.5- 325 mg Oral Tablet - take 1 tablet by ORAL route every 6 hours - for up to 5 days; do not exceed 8 tablets per day.; 20 tablet. cefdinir 300 mg Oral capsule - take 1 capsule by ORAL route every 12 hours; 20 capsule. - Medication Reconciliation Form, Thank You Letter, Antibiotic Education, Prescription Opioid Use form. - Follow up: Private Physician; When: 1 - 2 days; Reason: Recheck today's complaints, Continuance of care, Re-evaluation by your physician. - Notes: Please follow up with urology on thursday. return to the ED if you develop increased pain, bleeding, fever, or any other concerning symptoms. Addendum: 01/02/2020 20:13 Co-signature as Attending Physician, Theo Shay MD I agree with the assessment and c zhang plan of care. Signatures: Dispatcher [employer] [facility] Theo Shay MD MD cha Mickail, Joel, PA PA Brayden Flor, RN RN Alexandra Adame, RN RN aa5 Corrections: (The following items were deleted from the chart) 12/29 09:39 08:57 Urine Dipstick-Ancillary ordered. [facility] dh3 09:53 08:58 UA MICROSCOPIC+U.LAB.BRZ ordered. [facility] 10:19 08:58 Abdomen Pelvis W Con+CT.RAD.BRZ ordered. [facility] 17:52 16:38 12/30/2019 16:38 Discharged to Home. Impression: Hematuria; Urinary tract em infection, site not specified. Condition is Stable. Forms are Medication Reconciliation Form, Thank You Letter, Antibiotic Education, Prescription Opioid Use. Follow up: Private Physician; When: 1 - 2 days; Reason: Recheck today's complaints, Continuance of care, Re-evaluation by your physician. [facility]
[2019-12-30] MEDS ORDERED: CEFTRIAXONE/SWI 1gm 1 GM/10 ML SYR ONE (17:21)
[2019-12-30 17:57] VITALS: TEMP 98.3
[2019-12-30 18:02] VITALS: BP 172/71; O2SAT 97
== END 2019-12-30 17:52 | disposition home or self-care (01) ==
LOC: ER 08:20
DX: N39.0 Urinary tract infection, site not specified (principal); I10 Essential (primary) hypertension; Z85.038 Personal history of other malignant neoplasm of large intestine
CPT/HCPCS: 96365; 87088; 85025; 81001; 80048; 36415; 80076; 83690; 74176; 51700; 96375; 99284; J0696; J2405; 87086

== ENCOUNTER 2020-01-31 06:20 | Day surgery (SDC) | payer OTHER ==
[2020-01-26 13:54] LABS: Protime INR 1.22
[2020-01-26 13:55] LABS: Potassium 4.1 mmol/L (3.5-5.1)
[2020-01-26 13:56] LABS: Absolute Lymphocytes (CBC) 1.4 K/uL (0.7-4.9); Basophils % 1.3 % (0-1.3); Hematocrit 26.1 % (36.0-45.0); Lymphocytes % 31.7 % (15.3-44.8); MPV 11.9 fL (7.6-11.3); RBC Red Blood Cell Count 2.97 M/uL (3.86-4.86)
[2020-01-26 17:44] LABS: Blood Morphology Comment NOTED (NOT SEEN); Hypochromasia 1+; Platelet Estimate ADEQ
--- OUTSIDE RECORDS SUMMARY | 2020-01-31 06:29 | XMS REPORT ---
:1935 Author Organization [facility] Care Team Providers Name Role Phone John [...] Status Dosage System Date Date Amlodipine ND 95562345237 5 MG Orally Active 1 tab let Besylate Once a day Ferrous Sulfate [facility] 71109643818 325 (65 Fe) MG Activ e 1 tablet Orally BID Tradjenta ND 88254197300 5 MG Orally Active 1 tabl et Once a day Donepezil HCl ND 58291469637 10 MG Orally Active 1 tablet at Once a day bedtime Allopurinol ND 50053726787 100 MG Orally Active 1 tablet Once a day Riya Aspirin EC ND 61854528152 81 MG Orally Active 1 tablet Low Dose Once a day Lyrica ND 33212322515 150 MG Orally Active 1 caps ule Twice a day Irbesartan-[place] [facility] 94831335362 300-12.5 MG Active 1 tablet chlorothiazide Orally Once a day Lyrica [facility] 89673663607 150 MG Orally Active 1 caps ule Twice a day Levothyroxine [facility] 36993311118 75 MCG Active TAKE 1 Sodium TABLET BY MOUTH IN MORNING ON AN EMPTY STOMACH Tradjenta [facility] 76090034296 5 MG Orally Active 1 tabl et Once a day Cefdinir [facility] 57269723970 300 MG Orally NovemberDecember 24, Active as di rected BID 2019 Results No Known Results Summary Purpose eClinicalWorks Submission
--- OUTSIDE RECORDS SUMMARY | 2020-01-31 06:29 | XMS REPORT ---
[...] Medications Results No Known Results Summary Purpose eClinicalSegway Submission
--- OUTSIDE RECORDS SUMMARY | 2020-01-31 06:29 | XMS REPORT ---
[...] End Date Status Dos age Date Bactrim [facility] 89299549128 400-80 MG Orally December 12, December 13, Active 1 tablet Once a day 2019 2019 Results No Known Results Summary Purpose eClinicalWorks Submission
--- OUTSIDE RECORDS SUMMARY | 2020-01-31 06:29 | XMS REPORT | Continuity of Care Document ---
:1935 Author Organization [facility] t Address 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 l with with Outpati hyperglyce hyperglyce en t [facility] Clinics HTN HTN Problem Active [facility] (hypertens (hypertens Farrah kes - ion), ion), Memoria benign benign l Outpati ent Clinics Anemia, Anemia, Problem Active [facility] iron iron [facility] - deficiency deficiency Me moria , , l inadequate inadequate Ou tpati dietary dietary ent intake intake Clinics History of History of Problem Active [facility] colon colon [facility] - cancer cancer [facility] l Outpati ent Clinics Hypothyroi Hypothyroi Problem Active [facility] dism, dism, [facility] - unspecifie unspecifie Me moria d type d type l Outpati ent Clinics Seasonal Seasonal Problem Active [facility] allergies allergies Luke [facility] - [facility] l Out[facility] ent Clinics Mixed Mixed Problem Active [facility] hyperlipid hyperlipid Farrah kes - emia emia Memoria l Outpati ent Clinics Current Current Problem Active [facility] mild mild [facility] - episode of episode of Me moria major major l depressive depressive Ou tpati disorder disorder ent without without Clinics prior prior episode episode Left Left Problem Active [facility] sciatic sciatic [facility] - nerve pain nerve pain Me moria l Outpati ent Clinics Pain in Pain in Problem Active [facility] left ankle left ankle Farrah kes - and joints and joints Me moria of left of left l foot foot [facility] CKD CKD Problem Active [facility] (chronic (chronic [facility] - kidney kidney Memoria disease) disease) l stage 3, stage 3, Outpat i GFR 30-59 GFR 30-59 ent ml/min ml/min Clinics Chronic Chronic Problem Active [facility] gouty gouty [facility] - arthritis arthritis Daniele harrison l [facility] Diabetes Diabetes Problem Active [facility] mellitus mellitus [facility] - with with Memoria diabetic diabetic l polyneurop polyneurop Ou tpati athy athy ent Clinics ANS ANS Problem Active [facility] (arteriola (arteriola Farrah kes - r r Memoria nephroscle nephroscle l rosis) rosis) [facility] 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 Farrah kes - illness illness Memoria l [facility] Abdominal Abdominal Problem Active [facility] aortic aortic [facility] - atheroscle atheroscle Me moria rosis rosis l [facility] Aortic Aortic Problem Active [facility] disease disease [facility] - Memoria l [facility] Chronic Chronic Problem Active [facility] kidney kidney [facility] - disease disease Memoria due to due to l diabetes diabetes Outpat i mellitus mellitus ent Clinics Allergies, Adverse Reactions, Alerts This patient has no known allergies or adverse reactions. Medications Ordered Filled Start Stop Current Ordering Indication Dosage Frequency Signature Comments Components Source Medication Medication Date Date Medication? Clinician (SIG) Name Name Jorge Luis Kang 2019-0 Yes Vesna [address] [facility] 5-11 Muna [facility] - 00:00: Memoria 00 l [facility] ent [facility] Amlodipine Amlodipine Yes Vesna [address] [facility] Besylate Besylate Muna [facility] Ferrous Ferrous Yes Vesna [address] [facility] Sulfate Sulfate Muna [facility] Tradjenta Tradjenta Yes Vesna [address] [facility] [employer] [facility] - [facility] l [facility] ent [facility] Donepezil Donepezil Yes Vesna [address] [facility] HCl HCl Muna at bedtime [facility] Allopurinol Allopurinol Yes Vesna [address] [facility] [employer] [facility] Clin[facility] Riya Riya Yes Vesna [address] [facility] Aspirin EC Aspirin EC Muna [facility] - Low Dose Low Dose Memoria l Outpati ent Clinics Lyrica Lyrica Yes Vesna 1 capsule [facility] Muna [facility] Irbesartan- Irbesartan- Yes Vesna [address] [facility] Hydrochloro Hydrochloro [employer] [facility] - thiazide thiazide Memoria l Outpati ent Clinics Levothyroxi Levothyroxi Yes Vesna [address] [facility] ne Sodium ne Sodium [employer] in the [facility] - morning on Memoria an empty l stomach Outpati ent Clinics Tylenol Tylenol Yes Vesna [address] [facility] [employer] as needed [facility] - [facility] l Outpat[facility] ent Clinics Cephalexin Cephalexin Yes Vesna [address] [facility] Muna [facility] l Outpati ent Clinics Cefdinir Cefdinir Yes Vesna as [facility] [employer] directed [facility] Tramadol-Ac Tramadol-Ac Yes Vesna [address] etaminophen etaminophen [employer] as needed [facility] Procedures This patient has no known procedures. Encounters Start End Encounter Admission Attending Care Care Encounter Source Date/Time Date/Time Type Type Clinicians Facility Department ID 2020-01-25 2020-01-25 [facility] [id number] [facility] 14:00:00 14:00:00 t Specialty/U Farrah kes - Specialty rology Memori a /Urology Clinic l [facility] 2020-01-25 2020-01-25 Out[facility] [id number] [facility] 13:45:00 13:45:00 t [place] [facility] Family [facility] Outpati ent Clinics 2020-01-18 2020-01-18 Outpatient [facility] [id number] [facility] 15:03:00 15:03:00 t Specialty/U Farrah kes - Specialty rology Memori a /Urology Clinic l Clinic Outpati ent Clinics 2020-01-11 2020-01-11 Out[facility] [id number] [facility] 13:29:00 13:29:00 t Specialty/U Farrah kes - Specialty rology Memori a /Urology Clinic l Clinic Outpati ent Clinics 2020-01-02 2020-01-02 [facility] [id number] [address] 13:00:00 13:00:00 t Specialty/U Farrah kes - Specialty rology Memori a /Urology Clinic l Clinic Outpati ent Clinics 2019-12-30 2019-12-30 [facility] [id number] [facility] 14:46:00 14:46:00 t Specialty/U Farrah kes - Specialty rology Memori a /Urology Clinic l Clinic Outpati ent Clinics 2019-12-29 2019-12-29 [facility] [id number] [facility] 11:00:00 11:00:00 t [employer] [facility] Family Medicine l Medicine Outpati ent Clinics 2019-12-29 2019-12-29 [facility] [id number] 10:51:00 10:51:00 t [employer] IM-Sense [facility] l Medicine Outpati ent Clinics 2019-12-29 2019-12-29 [facility] [id number] [facility] 10:45:00 10:45:00 t [employer] [facility] Family Medicine l Medicine Outpati ent Clinics 2019-12-26 2019-12-26 [facility] [id number] 08:10:00 08:10:00 t [employer] [facility] Medicine l Medicine Outpati ent Clinics 2019-12-20 2019-12-20 [facility] [id number] [facility] 14:15:00 14:15:00 t Specialty/U Farrah kes - Specialty rology Memori a /Urology Clinic l Clinic Outpati ent Clinics 2019-12-08 2019-12-08 [facility] [id number] [facility] 13:32:00 13:32:00 t [employer] [facility] Family Medicine l Medicine Outpati ent Clinics 2019-11-23 2019-11-23 [facility] [id number] [facility] 08:41:00 08:41:00 t Specialty/U Farrah kes - Specialty rology Memori a /Urology Clinic l Clinic Outpati ent Clinics 2019-10-05 2019-10-05 [facility] [id number] [facility] 11:15:00 11:15:00 t Specialty/U Farrah kes - Specialty rology Memori a /Urology Clinic l Clinic Outpati ent Clinics 2019-09-27 2019-09-27 [facility] [id number] [address] 11:30:00 11:30:00 t [place] [employer] - [facility] Family Medicine l Medicine Outpati ent Clinics 2019-09-21 2019-09-21 [facility] [id number] [facility] 11:15:00 11:15:00 t Specialty/U Farrah kes - Specialty rology Memori a /Urology Clinic l Clinic Outpati ent Clinics 2019-09-21 2019-09-21 [facility] [id number] 08:15:00 08:15:00 t [place] [employer] - Drive [facility] Medicine l Medicine Outpati ent Clinics 2019-09-19 2019-09-19 [facility] [id number] [facility] 08:15:00 08:15:00 t [place] [employer] - Drive [facility] Medicine l Medicine Outpati ent Clinics 2019-09-16 2019-09-16 [facility] [id number] 09:35:00 09:35:00 t [place] [employer] - Drive [facility] Medicine l Medicine Outpati ent Clinics 2019-08-11 2019-08-11 [facility] [id number] [facility] 07:52:00 07:52:00 t [place] [employer] - Drive [facility] Medicine l Medicine Outpati ent Clinics 2019-06-27 2019-06-27 [facility] [id number] [facility] 13:15:00 13:15:00 t [place] [employer] - Drive [facility] Medicine l Medicine Outpati ent Clinics 2019-06-16 2019-06-16 [facility] [id number] 15:55:00 15:55:00 t [place] [employer] - Drive [facility] Medicine l Medicine Outpati ent Clinics 2019-05-19 2019-05-19 [facility] [id number] [facility] 09:45:00 09:45:00 t [place] [employer] - Drive [facility] l Medicine Outpati ent Clinics 2019-02-22 2019-02-22 [facility] [id number] [facility] 16:15:00 16:15:00 t [place] [employer] - Drive [facility] Medicine Outpati ent Clinics 2019-02-16 2019-02-16 [facility] [id number] [facility] 10:15:00 10:15:00 t [place] [employer] - Drive [facility] Medicine Outpati ent Clinics 2019-02-10 2019-02-10 [facility] [id number] 15:26:00 15:26:00 t [place] [employer] - Drive [facility] Medicine Outpati ent Clinics 2019-02-09 2019-02-09 [facility] [id number] 14:16:00 14:16:00 t [place] [employer] - Drive [facility] Medicine Outpati ent Clinics 2018-12-28 2018-12-28 [facility] [id number] 10:30:00 10:30:00 t Specialty/U Farrah kes - Specialty rology [facility] a /Urology Clinic l Clinic Outpati ent Clinics 2018-12-22 2018-12-22 [facility] [id number] [facility] 10:15:00 10:15:00 t [place] [employer] s - Drive [facility] Medicine Outpati ent Clinics 2018-12-09 2018-12-09 [facility] [id number] [facility] 09:00:00 09:00:00 t [facility] and [facility] - and Joint Joint [facility] ent Clinics 2018-11-16 2018-11-16 [facility] [id number] 09:15:00 09:15:00 t [place] [employer] - Drive [facility] Outpati ent Clinics 2018-09-13 2018-09-13 [facility] [id number] 09:45:00 09:45:00 t [place] [employer] - Drive [facility] Medicine Outpati ent Clinics 2018-08-11 2018-08-11 [facility] [id number] 09:45:00 09:45:00 t [employer] [facility] Medicine Outpati ent Clinics Results This patient has no known results.
--- OUTSIDE RECORDS SUMMARY | 2020-01-31 06:31 | XMS REPORT ---
[...] Status Dosage System Date Date Donepezil HCl [facility] 75123984929 10 MG Orally Active 1 tablet Once a day at bedtime Riya Aspirin EC [facility] 05319327758 81 MG Orally Active 1 tablet Low Dose Once a day Lyrica [facility] 60005819866 150 MG Orally Active 1 caps ule Twice a day Ferrous Sulfate [facility] 00303196952 325 (65 Fe) MG Activ e 1 tablet Orally BID Allopurinol [facility] 42009752220 100 MG Orally Active 1 tablet Once a day Tradjenta [facility] 91284267366 5 MG Orally Active 1 tabl et Once a day Amlodipine [facility] 64187331067 5 MG Orally Active 1 tab let Besylate Once a day Irbesartan-Hydroc [facility] 59504331665 300-12.5 MG Active 1 tablet hlorothiazide Orally Once a day Levothyroxine ND 59357854205 75 MCG Orally Active 1 tablet Sodium Once a day in the morning on an empty stomach Tylenol [facility] 23638748352 325 MG Orally Active 1 tabl et every 4 hrs as needed Results No Known Results Summary Purpose eClinicalWorks Submission
--- OUTSIDE RECORDS SUMMARY | 2020-01-31 06:31 | XMS REPORT ---
[...] Medications Results No Known Results Summary Purpose eClinicalREscour Submission
--- OUTSIDE RECORDS SUMMARY | 2020-01-31 06:31 | XMS REPORT ---
[...] Status Dosage System Date Date Levothyroxine ND 95351665013 75 MCG Orally Active 1 tablet Sodium Once a day in the morning on an empty stomach Irbesartan-Hydroc ND 04104106611 300-12.5 MG Active 1 tablet hlorothiazide Orally Once a day Riya Aspirin EC ND 31986860248 81 MG Orally Active 1 tablet Low Dose Once a day Allopurinol ND 72268882114 100 MG Orally Active 1 tablet Once a day Amlodipine [facility] 36646665545 5 MG Orally Active 1 tab let Besylate Once a day Ferrous Sulfate [facility] 79769048923 325 (65 Fe) MG Activ e 1 tablet Orally BID Tylenol [facility] 91817878776 325 MG Orally Active 1 tabl et every 4 hrs as needed Donepezil HCl [facility] 47079815412 10 MG Orally Active 1 tablet Once a day at bedtime Tradjenta [facility] 45070547474 5 MG Orally Active 1 tabl et Once a day Lyrica [facility] 96772543227 150 MG Orally Active 1 caps ule Twice a day Results No Known Results Summary Purpose eClinicalWorks Submission
--- OUTSIDE RECORDS SUMMARY | 2020-01-31 06:32 | XMS REPORT ---
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
--- OUTSIDE RECORDS SUMMARY | 2020-01-31 06:32 | XMS REPORT ---
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 Medications Medication Code Code Instructions Start End Status Dosage System Date Date Tradjenta [facility] 82016644617 5 MG Orally Active 1 tabl et Once a day Cephalexin ND 21184980344 500 MG Orally Active 1 c apsule every 12 hrs Levothyroxine ND 28028180318 75 MCG Orally Active 1 tablet in Sodium Once a day the morning on an empty stomach Ferrous Sulfate ND 15906865406 325 (65 Fe) MG Activ e 1 tablet Orally BID Cefdinir [facility] 72237122400 300 MG Orally Active as di rected Lyrica [facility] 11142473822 150 MG Orally Active 1 caps ule Twice a day Allopurinol [facility] 87055302796 100 MG Orally Active 1 tablet Once a day Riya Aspirin EC [facility] 41983108197 81 MG Orally Active 1 tablet Low Dose Once a day Amlodipine [facility] 63169925994 5 MG Orally Active 1 tab let Besylate Once a day Irbesartan-[place] [facility] 26429944768 300-12.5 MG Active 1 tablet chlorothiazide Orally Once a day Donepezil HCl [facility] 10554253580 10 MG Orally Active 1 tablet at Once a day bedtime Tylenol [facility] 74659270046 325 MG Orally Active 1 tabl et as every 4 hrs needed Zofran [facility] 54086032093 4 MG Orally BID January 01, Active 1 ta blet 2020 Tramadol-Acetami [facility] 73035621559 37.5-325 MG Active 2 tablets nophen Orally every 6 as needed hrs Results No Known Results Summary Purpose eClinicalWorks Submission
--- OUTSIDE RECORDS SUMMARY | 2020-01-31 06:33 | XMS REPORT ---
[...] Medications Results No Known Results Summary Purpose [employer]or[employer]btab Submission
--- OUTSIDE RECORDS SUMMARY | 2020-01-31 06:33 | XMS REPORT ---
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 Problem [...] Status Dosage System Date Date Donepezil HCl ND 23612413211 10 MG Orally Active 1 tablet at Once a day bedtime Amlodipine ND 29176166195 5 MG Orally Active 1 tab let Besylate Once a day Tramadol-Acetami ND 25206077648 37.5-325 MG Active 2 tablets nophen Orally every 6 as needed hrs Allopurinol ND 90398507868 100 MG Orally Active 1 tablet Once a day Lyrica ND 33596202993 150 MG Orally Active 1 caps ule Twice a day Riya Aspirin EC ND 86357947277 81 MG Orally Active 1 tablet Low Dose Once a day Cefdinir ND 54285061876 300 MG Orally Active as di rected Tradjenta ND 28628984085 5 MG Orally Active 1 tabl et Once a day Zofran ND 58425554324 4 MG Orally BID January 01, Active 1 ta blet 2020 Cephalexin ND 30092914360 500 MG Orally Active 1 c apsule every 12 hrs Levothyroxine ND 08312627913 75 MCG Orally Active 1 tablet in Sodium Once a day the morning on an empty stomach Irbesartan-[place] [facility] 05753578789 300-12.5 MG Active 1 tablet chlorothiazide Orally Once a day Ferrous Sulfate [facility] 62022561067 325 (65 Fe) MG Activ e 1 tablet Orally BID Tylenol ND 31682362624 325 MG Orally Active 1 tabl et as every 4 hrs needed Results No Known Results Summary Purpose eClinicalWorks Submission
--- OUTSIDE RECORDS SUMMARY | 2020-01-31 06:33 | XMS REPORT ---
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 35427537339 4 MG Orally BID January 01, Active 1 ta blet [address] [facility] 03144306402 150 MG Orally Active 1 caps ule Twice a day Donepezil HCl [facility] 23788066773 10 MG Orally Active 1 tablet at Once a day bedtime Amlodipine ND 27980231295 5 MG Orally Active 1 tab let Besylate Once a day Tramadol-Acetami [facility] 29072428034 37.5-325 MG Active 2 tablets nophen Orally every 6 as needed hrs Ferrous Sulfate [facility] 04251713202 325 (65 Fe) MG Activ e 1 tablet Orally BID Tradjenta ND 04293224643 5 MG Orally Active 1 tabl et Once a day Irbesartan-[place] [facility] 41994866332 300-12.5 MG Active 1 tablet chlorothiazide Orally Once a day Levothyroxine ND 28635572779 75 MCG Orally Active 1 tablet in Sodium Once a day the morning on an empty stomach Riya Aspirin EC ND 72245434050 81 MG Orally Active 1 tablet Low Dose Once a day Cefdinir ND 91629465829 300 MG Orally Active as di rected Cephalexin [facility] 31706296905 500 MG Orally Active 1 c apsule every 12 hrs Tylenol ND 08756605828 325 MG Orally Active 1 tabl et as every 4 hrs needed Allopurinol ND 93573572849 100 MG Orally Active 1 tablet Once a day Results No Known Results Summary Purpose eClinicalWorks Submission
[2020-01-31] MEDS ORDERED: NA CHLORIDE 0.9% 1,000 ML ONE (06:36)
[2020-01-31] MEDS ORDERED: CEFOXITIN/SWI 1gm 1 GM/10 ML SYR ONE (06:36)
[2020-01-31] MEDS ORDERED: LIDOCAINE 1% MPF 5 ML VIAL ONE (07:14)
[2020-01-31] MEDS ORDERED: FENTANYL CITR 100 MCG/2 ML ONE (07:14)
[2020-01-31] MEDS ORDERED: propofoL 200 MG/20 ML VIAL IV ONE (07:14)
[2020-01-31] MEDS ORDERED: GLYCOPYRROLATE 0.2 MG/ML SYR ONE (07:52)
[2020-01-31] MEDS ORDERED: EPHEDRINE SULF 50 MG/ML VIAL ONE (07:53)
[2020-01-31] MEDS ORDERED: AMPICILLIN SODIUM 1 GM/VIAL IVPB ONE (07:55)
[2020-01-31] MEDS ORDERED: dexAMETHasone 10 MG/ML VIAL ONE (08:06)
[2020-01-31] MEDS ORDERED: AMPICILLIN SODIUM 1 GM in NA CHLORIDE 0.9% 100 ML IVPB ONE (08:15)
[2020-01-31] MEDS ORDERED: KETOROLAC 30 MG/ML INJ ONE (08:29)
--- NOTE | 2020-01-31 09:11 | RAD REPORT ---
EXAM DESCRIPTION: RAD - Urography Retrograde - 01/31/2020 9:00 am CLINICAL HISTORY: Abdominal pain/dysuria/hydronephrosis FINDINGS: Thirteen fluoroscopic spot images obtained. Fluoroscopy time 0.14 minutes Both ureters cannulated and contrast administered Refer to the performing physicians report for additional findings
[2020-01-31 09:58] VITALS: TEMP 96.8; O2SAT 98
[2020-01-31 10:34] VITALS: BP 140/57
--- NOTE | 2020-02-21 19:00 | OP ---
Date of Procedure: 01/31/2020 Surgeon: SOCRATES COLON Preoperative Diagnoses: Hematuria and bladder pain. Postoperative Diagnoses: Hematuria and bladder pain. Procedure Performed: Cystoscopy, bilateral retrograde pyelograms, bladder biopsies with fulguration. Anesthesia: General. Procedure In Detail: With the patient in modified dorsal lithotomy position on the operating table a fter the induction of anesthesia, the genitalia were prepped and draped in the usual sterile fashion. A standard 22-Citizen [place] cystoscope was passed through urethra. The bladder had extensive inflammatory changes throughout with diffuse erythema. There was 1 small bleeding site which appeared to be infl ammatory polyp like structure in the mid posterior wall that actually was actively bleeding. Bilater al retrograde pyelograms were performed with a cone-tipped catheter revealing no significant upper tr act abnormalities. The cold cup biopsy forceps were used to biopsy the bleeding site and polyp on e surrounding mucosa. This was sent for pathology. The area was fulgurated and complete hemostasis was obtained. The bladder was straight and cystoscope was removed and the patient was awakened and t ransferred by stretcher to the recovery room in satisfactory condition. She tolerated the procedure well. There were no complications. Blood loss was less than 10 cc. Counts were correct. Specimens were of the bladder, urine for cytology from the bladder biopsy as noted above. SAMSON Voice ID: [id number] Report ID: [id number]
== END 2020-01-31 11:20 | disposition home or self-care (01) ==
LOC: OR 06:20
PROVIDERS: ATTEND Internal Medicine Hematology & Oncology
PROC: BT14ZZZ Fluoroscopy of Kidneys, Ureters and Bladder (ICD-10-PCS; 2020-01-31)
PROC: 0TBB8ZX Excision of Bladder, Via Natural or Artificial Opening Endoscopic, Diagnostic (ICD-10-PCS; principal; 2020-01-31 07:30)
DX: R31.0 Gross hematuria (principal); D41.4 Neoplasm of uncertain behavior of bladder; N39.0 Urinary tract infection, site not specified; R39.89 Other symptoms and signs involving the genitourinary system; R33.9 Retention of urine, unspecified; E11.9 Type 2 diabetes mellitus without complications; I10 Essential (primary) hypertension; E03.9 Hypothyroidism, unspecified; E78.5 Hyperlipidemia, unspecified; M10.9 Gout, unspecified; M25.50 Pain in unspecified joint; G62.9 Polyneuropathy, unspecified; Z85.42 Personal history of malignant neoplasm of other parts of uterus; Z85.038 Personal history of other malignant neoplasm of large intestine
CPT/HCPCS: 93005; 87088; 85025; 36415; 88108; 85610; 82565; 82947; 84520; 80051; 88305; 85730; 74420; 52005; 52204; J2704; J3010; J1100; J7030; J0290; 87086